=== PATIENT | male | born 1990 | race Caucasian/White ===

== ENCOUNTER 2019-06-23 12:43 | Emergency (ER) | payer SELFPAY ==
[2019-06-23] MEDS ORDERED: Ondansetron PF 4 MG/2 ML Vial ONE ×2 (12:49→14:15)
[2019-06-23] MEDS ORDERED: Ondansetron ODT 4 MG TAB ONE (12:50)
[2019-06-23 13:41] LABS: Hemoglobin 15.8 g/dL (14.0-18.0); Mean Corpuscular HGB CONC 32.6 g/dL (32.0-36.0); Mean Corpuscular Hemoglobin 32.7 pg (27.0-31.0); Mean Platelet Volume 8.2 fL (7.4-10.4); Platelet Count 325 thou/uL (130-400); Red Blood Cell (RBC) Count 4.83 mill/uL (4.70-6.10); White Blood Cell (WBC) Count 22.1 thou/uL (4.8-10.8)
[2019-06-23 14:01] LABS: ALT (SGPT) 28 U/L (8-55); AST (SGOT) 20 U/L (5-34); Albumin 5.2 g/dL (3.5-5.0); Alkaline Phosphatase 71 U/L (40-110); Anion Gap 18 mmol/L (10-20); BUN (Urea Nitrogen) 10 mg/dL (8.9-20.6); Bilirubin, Total 0.8 mg/dL (0.2-1.2); CK (CPK) 76 U/L (30-200); Calc. Creatinine Clearance 0 mL/min (70-130); Calcium 10.4 mg/dL (7.8-10.44); Carbon Dioxide 23 mmol/L (22-29); Chloride 106 mmol/L (98-107); Estimated GFR-MDRD 85; Globulin 2.8 g/dL (2.4-3.5); Glucose 154 mg/dL (70-105); Lipase 27 U/L (8-78); Sodium 142 mmol/L (136-145)
[2019-06-23 14:04] LABS: MDiff Complete? YES
[2019-06-23 14:05] LABS: Band 7 % (5-11); Lymphocytes 4 % (21-51); Macrocytosis SLIGHT = 6-15 cells (100X) (0-5/hpf); Monocytes 6 % (0-10); Neutrophil 79 % (42-75); Platelet Morphology Comment Appears Adequate; Polychromasia SLIGHT = 2-3 cells (100X) (0-2/hpf); Reactive Lymphocytes 4 % (0-10)
[2019-06-23] MEDS ORDERED: Haloperidol Lactate 5 MG/ML VIAL ONE (14:37)
[2019-06-23] MEDS ORDERED: diphenhydrAMINE 50 MG/ML VIAL ONE (14:37)
[2019-06-23] MEDS ORDERED: Iopamidol 370 76% 50 ML VIAL FS ONE (15:17)
[2019-06-23] MEDS ORDERED: Iopamidol-370 76% 500 ML 1 ML ONE (15:17)
[2019-06-23] MEDS ORDERED: Morphine 2 MG/ML SYRINGE ONE (15:44)
--- NOTE | 2019-06-23 17:14 | CT ---
CT OF THE ABDOMEN AND PELVIS WITH IV CONTRAST INDICATION: Generalized abdominal pain concern for appendicitis COMPARISON: None FINDINGS: ABDOMEN: Lung bases: Clear Liver: No focal lesion. Gallbladder: Normal appearing. Pancreas: Normal. Adrenal glands: Normal. Spleen: Normal. Kidneys and ureters: There are tiny bilateral renal cysts. There is a 3 mm calculus within the mid to lower pole left kidney. There is an additional 2 mm calculus within the inferior pole of the left kidney. No hydronephrosis is demonstrated. Vasculature: Normal. Lymph nodes:No lymphadenopathy. Free fluid in abdomen:No free fluid is evident. PELVIS: Small and large bowel: Normal Appendix:Normal Bladder: Normal. Rectal and perirectal soft tissues:Normal. Reproductive structures: Normal. Free fluid in pelvis: No free fluid is evident. Lymphadenopathy pelvis: No lymphadenopathy is evident. Osseous structures: No acute osseous abnormality. No destructive osteolytic or osteoblastic lesion i s identified. Soft tissues:Normal. IMPRESSION: 1. No acute abnormality. 2. Bilateral renal cysts and left nephrolithiasis
[2019-06-23 17:42] LABS: Bacteria/HPF None Seen HPF (None Seen); Bilirubin Negative (Negative); Blood, Urine 1+ (Negative); Clarity Clear (Clear); Glucose, Urine (Dipstick) Normal (Negative); Leukocyte Negative Leu/uL (Negative); Nitrite Negative (Negative); Protein, Urine (Dipstick) 30 mg/dL (Neg-Trace); RBC/HPF 21-50 HPF (0-3); Squamous Epithelial None Seen HPF (0-3); Urobilinogen Normal mg/dL (Less than 2); WBC/HPF 0-3 HPF (0-3)
== END 2019-06-23 19:27 | disposition home or self-care (01) ==
LOC: ERS 12:43
DX: R11.2 Nausea with vomiting, unspecified (principal); R10.84 Generalized abdominal pain; R19.7 Diarrhea, unspecified; F41.9 Anxiety disorder, unspecified; F32.9 Major depressive disorder, single episode, unspecified; F43.10 Post-traumatic stress disorder, unspecified; G47.00 Insomnia, unspecified; F17.210 Nicotine dependence, cigarettes, uncomplicated
CPT/HCPCS: 36415; 74177; 80053; 81003; 81015; 82550; 83690; 85025; 87804; 96361; 96372; 96374; 96375; J0500; J1200; J1630; J2270; J2405; Q0162; Q9967